=== PATIENT | male | born 1990 ===

== ENCOUNTER → 2017-05-11 | Outpatient (REF) | payer SELFPAY ==
[2017-05-11 11:36] LABS: SEMEN APPEARANCE OPAQUE (OPAQUE); SEMEN VISCOSITY LIQUID (LIQUID); SEMEN VOLUME 1.5 ml (4.0-5.0); SEMEN pH 8.5 (7.0-8.0)
[2017-05-11 11:37] LABS: % NORMAL FORMS 10 % (>=4); IMMOTILITY 41 %; NON PROGRESSIVE MOTILITY (c) 16 %; PROGRESSIVE MOTILITY (a) 43 % (>=32); SPERM CONCENTRATION 54.6 M/ml (>=15.0); SPERM# 81.8 M/Ejac (>=39); TOTAL MOTILITY 59 % (>=40); WBC CONCENTRATION >1 M/ml (<=1 M/ml)
== END ==
LOC: M LAB REF 11:28
DX: N46.9 Male infertility, unspecified (principal)
CPT/HCPCS: 89320